=== PATIENT | female | born 1960 | race Caucasian/White ===

== ENCOUNTER 2023-11-17 06:27 | Day surgery (SDC) | payer OTHER ==
[~2023-11-17] VITALS: Ht 157.5 cm; Wt 80.7 kg
[2023-11-17] MEDS ORDERED: SIMETHICONE 40 MG/0.6 ML ML ONE (08:12)
[2023-11-17] MEDS ORDERED: MEPERIDINE 100 MG INJ. 100 MG/ML VIAL ONE (08:12)
[2023-11-17] MEDS ORDERED: MIDAZOLAM HCL 5 MG/5 ML VIAL ONE (08:13)
[2023-11-17 15:32] VITALS: BP_SYST 151; PULSE 66; RESP 18; TEMP 97.5; O2SAT 98
== END 2023-11-17 10:20 | disposition home or self-care (01) ==
LOC: SDS 06:27 → SMU 06:29 → SDS 10:20
PROVIDERS: ATTEND Internal Medicine Gastroenterology
DX: Z09 Encounter for follow-up examination after completed treatment for conditions other than malignant neoplasm (principal); K57.30 Diverticulosis of large intestine without perforation or abscess without bleeding; K64.8 Other hemorrhoids; I10 Essential (primary) hypertension; E11.9 Type 2 diabetes mellitus without complications; Z87.891 Personal history of nicotine dependence
CPT/HCPCS: 45378; 99152; G0378; J2250; J2175